=== PATIENT | male | born 1955 | race Asian ===

== ENCOUNTER 2020-12-27 07:44 | Outpatient (CLI) | payer BC ==
[2020-12-27 09:34] LABS: Anion Gap 14 mmol/L (10-20); BUN (Urea Nitrogen) 10 mg/dL (8.4-25.7); Calc. Creatinine Clearance 0 mL/min (70-130); Carbon Dioxide 24 mmol/L (23-31); Chloride 105 mmol/L (98-107); Glucose 106 mg/dL (80-115); Potassium 4.5 mmol/L (3.5-5.1); Sodium 138 mmol/L (136-145)
[2020-12-27 09:56] LABS: #Basophils 0.1 10x3/uL (0.0-0.2); #Eosinphils 0.1 10x3/uL (0.0-0.5); #Monocytes 0.4 10x3/uL (0.0-1.1); %Basophils 1.8 % (0.0-2.0); %Eosinophils 1.8 % (0.0-6.0); %Lymphocytes 43.4 % (18.0-47.0); %Monocytes 8.8 % (0.0-10.0); Hemoglobin 14.3 g/dL (13.5-17.5); Mean Corpuscular HGB CONC 34.3 g/dL (32.0-36.0); Mean Corpuscular Hemoglobin 31.8 pg (27.0-33.0); Mean Corpuscular Volume 92.7 fl (81.2-95.1); Mean Platelet Volume 11.9 fl (7.4-10.4); Platelet Count 178 10x3/uL (150-450); RBC Distribution Width 11.7 % (11.5-14.5); White Blood Cell (WBC) Count 4.5 10x3/uL (3.5-10.5)
[2020-12-28 01:29] LABS: SARS-CoV-2 PCR by NAA Not Detected (NotDetected)
== END 2020-12-27 07:45 | disposition home or self-care (01) ==
LOC: LABBT 07:44
PROVIDERS: ATTEND Orthopaedic Surgery
DX: Z01.818 Encounter for other preprocedural examination (principal); S83.241A Other tear of medial meniscus, current injury, right knee, initial encounter; Z20.822 Contact with and (suspected) exposure to COVID-19
CPT/HCPCS: 80048; 85025; 93005; 93010; U0003; U0005

== ENCOUNTER 2022-02-16 07:25 | Outpatient (CLI) | payer BC ==
[2022-02-16 09:44] LABS: #Basophils 0.1 10x3/uL (0.0-0.2); #Eosinphils 0.1 10x3/uL (0.0-0.5); #Monocytes 0.8 10x3/uL (0.0-1.1); #Neutrophils 3.6 10x3/uL (1.5-8.4); %Basophils 0.9 % (0.0-2.0); %Eosinophils 1.7 % (0.0-6.0); %Lymphocytes 29.8 % (18.0-47.0); %Monocytes 12.6 % (0.0-10.0); %Neutrophils 54.8 % (40.0-75.0); Mean Corpuscular HGB CONC 34.6 g/dL (32.0-36.0); Mean Corpuscular Hemoglobin 31.5 pg (27.0-33.0); Mean Corpuscular Volume 91.1 fl (81.2-95.1); Mean Platelet Volume 11.5 fl (7.4-10.4); Platelet Count 191 10x3/uL (150-450); RBC Distribution Width 12.2 % (11.5-14.5); Red Blood Cell (RBC) Count 3.81 10x6/uL (4.32-5.72); White Blood Cell (WBC) Count 6.6 10x3/uL (3.5-10.5)
[2022-02-16 09:59] LABS: Anion Gap 13 mmol/L (10-20); BUN (Urea Nitrogen) 10 mg/dL (8.4-25.7); Calc. Creatinine Clearance 0 mL/min (70-130); Calcium 9.4 mg/dL (7.8-10.44); Carbon Dioxide 26 mmol/L (23-31); Chloride 102 mmol/L (98-107); Estimated GFR 98; Glucose 101 mg/dL (80-115); Potassium 4.1 mmol/L (3.5-5.1); Sodium 137 mmol/L (136-145)
[2022-02-16 10:13] LABS: INR-International Normal Ratio 0.9
== END 2022-02-16 07:26 | disposition home or self-care (01) ==
LOC: LABBT 07:25
PROVIDERS: ATTEND Orthopaedic Surgery
DX: Z01.818 Encounter for other preprocedural examination (principal); S42.292A Other displaced fracture of upper end of left humerus, initial encounter for closed fracture
CPT/HCPCS: 80048; 85025; 85610; 93005; 93010

== ENCOUNTER 2022-02-19 05:45 | Observation (INO) | payer BC ==
[2022-02-18 12:01] VITALS: BMI 27.3
[2022-02-19] MEDS ORDERED: Fentanyl 100 MCG/2 ML VIAL ONE (06:34)
[2022-02-19] MEDS ORDERED: Midazolam HCl 2 mg/2 ml Vial ONE (06:34)
[2022-02-19] MEDS ORDERED: Tranexamic Acid 1,000 MG/10 ML VIAL ONE (06:40)
[2022-02-19] MEDS ORDERED: Vancomycin (BATCH) 1.5 GRAM/300 ML BAG ONE (06:40)
[2022-02-19] MEDS ORDERED: Sodium Chloride 0.9% 100 ML ONE ×2 (06:40→06:57)
[2022-02-19] MEDS ORDERED: CEFAZOLIN 2 GM VIAL ONE (06:57)
[2022-02-19] MEDS ORDERED: Phenylephrine 10 MG/ML VIAL ONE (06:57)
[2022-02-19] MEDS ORDERED: fentaNYL Citrate/PF 100 MCG/2 ML SYRINGE ONE (07:00)
[2022-02-19] MEDS ORDERED: Ropivacaine 0.5% HCl/PF (150 MG/30 ML VIAL) ONE ×2 (07:01→07:16)
[2022-02-19] MEDS ORDERED: Lidocaine 1% PF 5 ML VIAL ONE (07:16)
[2022-02-19] MEDS ORDERED: Dexamethasone 20 MG/5 ML VIAL ONE (07:16)
[2022-02-19] MEDS ORDERED: PROPOFOL 200 MG/20 ML VIAL ONE (07:16)
[2022-02-19] MEDS ORDERED: Ketorolac Tromethamine 30 MG/ML VIAL ONE (07:16)
[2022-02-19] MEDS ORDERED: NEOSTIGMINE 3 MG/3 ML SYR 3 MG/3 ML SYRINGE ONE (07:16)
[2022-02-19] MEDS ORDERED: Glycopyrrolate 0.2 MG/ML 5 ML SYRINGE ONE (07:16)
[2022-02-19] MEDS ORDERED: Ondansetron PF 4 MG/2 ML Vial ONE (07:16)
[2022-02-19] MEDS ORDERED: Rocuronium Bromide 10 MG/ML (10ML VIAL) ONE (07:16)
[2022-02-19] MEDS ORDERED: Zolpidem Tartrate 5 MG TAB PO PRN (08:30)
[2022-02-19] MEDS ORDERED: Ondansetron PF 4 MG/2 ML Vial IVP PRN (08:30)
[2022-02-19] MEDS ORDERED: Promethazine HCl 25 MG/ML VIAL IM PRN (08:30)
[2022-02-19] MEDS ORDERED: HYDROcodone/Acetaminophen 10/325 mg Tablet PO PRN ×2 (08:30)
[2022-02-19] MEDS ORDERED: traMADol HCl 50 MG TAB PO PRN ×2 (08:30)
[2022-02-19] MEDS ORDERED: Ketorolac Tromethamine 30 MG/ML VIAL IVP PRN (08:30)
[2022-02-19] MEDS ORDERED: Ropivacaine 0.2% 550 ML 550 ML NERVE BLCK SCH (08:30)
[2022-02-19] MEDS ORDERED: diphenhydrAMINE 50 MG CAP PO PRN (12:01)
[2022-02-19] MEDS ORDERED: Bisacodyl 10 MG SUPP PR PRN (12:01)
[2022-02-19] MEDS ORDERED: Acetaminophen 325 MG TAB PO PRN (12:01)
[2022-02-19] MEDS ORDERED: Methocarbamol 500 MG TAB PO PRN (12:01)
[2022-02-19] MEDS ORDERED: Methocarbamol 1 GM/10 ML VIAL SLOW IVP PRN (12:01)
[2022-02-19] MEDS ORDERED: Milk Of Magnesia 30 ML UDCUP PO PRN (12:01)
[2022-02-19] MEDS: Dextrose 5 %-0.45 % NaCl 1,000 ML IV SCH (13:51)
[2022-02-19] MEDS: CEFAZOLIN 2 GM in Sodium Chloride 0.9% 100 ML IVPB SCH ×2 (13:51→21:16)
[2022-02-19] MEDS ORDERED: Vancomycin 1.5 GRAM/300 ML BAG 1.5 GM in Premix Bag 1 BAG IVPB SCH (18:00)
[2022-02-19] MEDS: Famotidine 20 MG TAB PO SCH (21:16)
[2022-02-20 06:06] LABS: #Lymphocytes 2.5 thou/uL (1.20-3.40); #Monocytes 1.3 thou/uL (0.11-0.59); #Neutrophils 7.2 thou/uL (1.40-6.50); %Basophils 0.2 % (0.0-1.0); %Eosinophils 0.2 % (0.0-10.0); %Lymphocytes 22.4 % (21.0-51.0); %Monocytes 11.5 % (0.0-10.0); %Neutrophils 65.7 % (42.0-75.0); Hemoglobin 11.2 g/dL (14.0-18.0); Mean Corpuscular HGB CONC 32.3 g/dL (32.0-36.0); Mean Corpuscular Hemoglobin 30.7 pg (27.0-31.0); Mean Corpuscular Volume 95.2 fL (78.0-98.0); Mean Platelet Volume 8.7 fL (7.4-10.4); Platelet Count 205 thou/uL (130-400); RBC Distribution Width 11.5 % (11.5-14.5); Red Blood Cell (RBC) Count 3.64 mill/uL (4.70-6.10)
[2022-02-20] MEDS: Dextrose 5 %-0.45 % NaCl 1,000 ML IV SCH (06:37)
[2022-02-20] MEDS ORDERED: Cyclobenzaprine 10 MG TAB PO PRN (07:00)
[2022-02-20] MEDS: Famotidine 20 MG TAB PO SCH (09:02)
[2022-02-20 09:12] VITALS: BP 157/88; TEMP 98.2
== END 2022-02-20 11:03 | disposition home or self-care (01) ==
LOC: SDC 05:45 → SURG B 11:58
PROVIDERS: ADMIT Orthopaedic Surgery; ATTEND Orthopaedic Surgery
PROC: 0RRK00Z Replacement of Left Shoulder Joint with Reverse Ball and Socket Synthetic Substitute, Open Approach (ICD-10-PCS; principal; 2022-02-19)
DX: S42.292A Other displaced fracture of upper end of left humerus, initial encounter for closed fracture (principal); G47.30 Sleep apnea, unspecified; M81.0 Age-related osteoporosis without current pathological fracture; Z79.899 Other long term (current) drug therapy; W19.XXXA Unspecified fall, initial encounter
CPT/HCPCS: 36415; 76000; 85025; A4306; C1713; C1776; C1889; J0690; J1100; J1885; J2250; J2370; J2405; J2704; J2795; J3010; J3370; J3490; J7042

== ENCOUNTER 2022-03-13 14:40 | Outpatient (CLI) | payer BC | END 2022-03-13 14:41 | disposition home or self-care (01) | LOC: BICMAMMO 14:40 | PROVIDERS: ATTEND Internal Medicine Endocrinology, Diabetes & Metabolism | DX: M81.0 Age-related osteoporosis without current pathological fracture (principal); M85.89 Other specified disorders of bone density and structure, multiple sites | CPT/HCPCS: 77080 ==